=== PATIENT | female | born 1975 | race Caucasian/White ===

== ENCOUNTER 2017-04-26 08:37 | Emergency (ER) | payer MEDICAID ==
[~2017-04-26] VITALS: Ht 160 cm; Wt 87.0 kg
[2017-04-26 08:40] VITALS: Ht 160 cm; Wt 87.0 kg
[2017-04-26] MEDS ORDERED: ONDANSETRON (ODT) 4 MG TAB ODT STA (09:04)
[2017-04-26] MEDS ORDERED: KETOROLAC 60 MG INJ IM STA (09:04)
[2017-04-26] MEDS ORDERED: EXCED PO (09:47)
[2017-04-26] MEDS ORDERED: ONDA4TAB14 PO (09:47)
[2017-04-26] MEDS ORDERED: HYDR-906 PO (09:47)
--- NOTE | 2017-04-26 09:53 | ERD ---
ER Documentation Chief Complaint Date/Time DATE: 04/26/17 TIME: 09:49 Chief Complaint arora x 4 days HPI Patient is a 41-year-old female who presents with a bilateral frontal throbbing headache that she has had for 4 days. She denies any trauma. Denies any nausea or vomiting. Denies any photosensitivity or changes to her vision. Denies fever or neck stiffness. She states she has taken Tylenol at home which relieved her pain temporarily but then it usually comes back. ROS All systems reviewed and are negative except as per history of present illness. Medications Home Meds Active Scripts Hydrocodone/Acetaminophen (Liberal 5-325 Tablet) 1 Each Tablet, 1 EACH PO Q6, #15 TAB Prov:TAWANA BORREGO PA-C 04/26/17 Ondansetron (Ondansetron Odt) 4 Mg Tab.rapdis, 4 MG PO Q6H Y for NAUSEA AND/OR VOMITING, #20 TAB Prov:TAWANA BORREGO PA-C 04/26/17 Acetaminophen/Aspirin/Caffeine* (Excedrin*) 1 Tab Tab, 1 TAB PO Q6, #30 TAB Prov:TAWANA BORREGO PA-C 04/26/17 PMhx/Soc Medical and Surgical Hx: pt denies Medical Hx, pt denies Surgical Hx Hx Alcohol Use: No Hx Substance Use: No Hx Tobacco Use: No FmHx Family History: No diabetes Physical Exam Vitals Vital Signs Date Time Temp Pulse Resp B/P Pulse Ox O2 Delivery O2 Flow Rate FiO2 04/26/17 08:40 98.1 87 18 113/67 99 Physical Exam General: well developed, well nourished, alert, nontoxic, no distress Head: normocephalic, atraumatic Neck: Supple, nontender, no lymphadenopathy, no midline tenderness Ears: no tenderness over mastoids bilaterally, TMs nonerythematous, no exudates in canal Respiratory: Clear to auscaultation bilaterally, speaks in full sentences, no use of accesory muscles or labored breathing, no rales, ronchi, or wheezing Cardiovascular: RRR, No murmurs GI: soft, non tender, non distended, negative murphys sign, negative mcburneys point tenderness, no cva tenderness bilaterally, no rebound or guarding Neuro: CN 2-12 intact, normal speech, turpentine distiller strength 5/5 bilaterally, rapid alternating movements wnl, romberg and pronator drift wnl Results 24 hrs Current Medications Medications (Trade) Dose Ordered Sig/Eri Route PRN Reason Start Time Stop Time Status Last Admin Dose Admin Ketorolac Tromethamine (Toradol) 60 mg ONCE STAT IM 04/26/17 09:04 04/26/17 09:05 DC 04/26/17 09:24 Ondansetron HCl (Zofran Odt) 4 mg ONCE STAT ODT 04/26/17 09:04 04/26/17 09:05 DC 04/26/17 09:24 Procedures/MDM Patient has headache. Exam is normal. I doubt she needs a CT scan at this time I doubt she has any intracranial pathology. She was given Toradol and Zofran here and had improvement of her symptoms and was discharged with Excedrin , Zofran, and small amount of Liberal. Recommended this patient follow up with her primary care doctor within 48 hours or return to the emergency room for any worsening of symptoms. However this time I do believe there is suitable for outpatient management. I answered all their questions and they agreed with the plan and were discharged home. Departure Diagnosis: Primary Impression: Headache Condition: Stable Patient Instructions: Self-Care for Headaches Additional Instructions: Call your primary care doctor TOMORROW for an appointment during the next 1-2 days.See the doctor sooner or return here if your condition worsens before your appointment time. TAWANA BORREGO PA-C Apr 26, 2017 09:53
== END 2017-04-26 10:15 | disposition home or self-care (01) ==
LOC: FTE 08:37
DX: R51 Headache (principal)
CPT/HCPCS: 96372; J1885; Z7502; Z7610